=== PATIENT | female | born 1980 | race Caucasian/White ===

== ENCOUNTER 2016-06-07 11:11 | Emergency (ER) | payer OTHER ==
[2016-06-07 11:14] VITALS: BP 184/92; PULSE 112; RESP 20; TEMP 97.7; O2SAT 97
[2016-06-07 13:52] VITALS: BP 166/87; PULSE 104; RESP 17; O2SAT 98
--- NOTE | 2016-06-07 14:49 | PD ---
HPI Chief Complaint: Eye Problems/Injury Time Seen by Provider: 14:43 Travel History International Travel<30 days: No Contact w/Intl Traveler<30days: No Traveled to known affect area: No History of Present Illness HPI 35-year-old female presents the emergency Department with history of retinal hemorrhage, retinal detachment, type 2 diabetes which is not controlled currently. Patient was seen by Dr. Sykes, an gas pump attendant, who performed laser surgery 2 days ago for what appeared to be diabetic retinal hemorrhaging. Patient does not take any medications for her type 2 diabetes. Patient has no history of hypertension. Patient has no known drug allergies. PFSH Past Medical History Diabetes: Yes Patient Takes Glucophage: No Diminished Hearing: No Tetanus Vaccination: Unknown Influenza Vaccination: No ?: Not LMP: 06/06/16 Past Surgical History Section: Yes Eye Surgery: Yes Gynecologic Surgery: Yes Social History Alcohol Use: Yes (OCCASIONALLY) Tobacco Use: No Substance Use: No Allergies-Medications (Allergen,Severity, Reaction): Coded Allergies: No Known Allergies (Unverified , 06/07/16) Reported Meds & Prescriptions Reported Meds & Active Scripts Active No Active Prescriptions or Reported Medications Review of Systems General / Constitutional: No: Fever Eyes: Positive: Blurred Vision, Blind Spots, Visual changes (see history of present illness), No: Diploplia, Photophobia, Drainage, Redness, Foreign Body Sensation, Pain, Tearing HENT: No: Headaches Cardiovascular: No: Chest Pain or Discomfort Respiratory: No: Shortness of Breath Gastrointestinal: No: Abdominal Pain Genitourinary: No: Dysuria Musculoskeletal: No: Pain Skin: No Rash Neurologic: No: Weakness Psychiatric: No: Depression Endocrine: No: Polydipsia Hematologic/Lymphatic: No: Easy Bruising Physical Exam Narrative GENERAL: SKIN: Warm and dry. HEAD: Atraumatic. Normocephalic. EYES: Pupils equal and round. No scleral icterus. Patient has a sub conjunctival hemorrhage on the left. Ophthalmoscopic exam is difficult to assess, with decreased light reflex on the left. ENT: No nasal bleeding or discharge. Mucous membranes pink and moist. Pharynx is clear. NECK: Trachea midline. No JVD. CARDIOVASCULAR: Regular rate and rhythm. RESPIRATORY: No accessory muscle use. Clear to auscultation. Breath sounds equal bilaterally. MUSCULOSKELETAL: Extremities without clubbing, cyanosis, or edema. No obvious deformities. NEUROLOGICAL: Awake and alert. No obvious cranial nerve deficits. Motor grossly within normal limits. Five out of 5 muscle strength in the arms and legs. Normal speech. PSYCHIATRIC: Appropriate mood and affect; insight and judgment normal. Data Data Last Documented VS Vital Signs Date Time Temp Pulse Resp B/P Pulse Ox O2 Delivery O2 Flow Rate FiO2 06/07/16 15:10 97 Room Air 06/07/16 13:52 104 17 166/87 06/07/16 11:14 97.7 Orders Complete Blood Count With Diff (06/07/16 14:49) Comprehensive Metabolic Panel (06/07/16 14:49) Prothrombin Time / Inr (Pt) (06/07/16 14:49) Act Partial Throm Time (Ptt) (06/07/16 14:49) Urinalysis - C+S If Indicated (06/07/16 14:49) Blood Glucose (06/07/16 14:49) MDM Medical Decision Making Medical Screen Exam Complete: Yes Emergency Medical Condition: Yes Differential Diagnosis Diabetic retinal hemorrhage. Retinal tear. For ophthalmologic Surgery. Narrative Course Patient is medically stable at time of exam. Random fingerstick glucose is 257. Call was placed to Dr. Wilson the slope tender on-call, who refers me to Dr. Donaldson. Dr. Donaldson returned my call and the patient was discussed. He stated he could see the patient if she can get their within the next half an hour. Patient was immediately discharged so she could follow with Dr. Donaldson today at his office. Diagnosis Primary Impression: Retinal tear of right eye Additional Impression: Retinal hemorrhage due to secondary diabetes Referrals: Freddie Donaldson MD [facility] Patient Instructions: General Instructions Additional Instructions: Go directly to 's office for evaluation and treatment today. Need to follow with a local primary care physician to get your diabetes under control. He can return the emergency department as needed. Med/Other Pt SpecificInfo: No Meds Exist/No RX given Scripts No Active Prescriptions or Reported Meds Disposition: 01 DISCHARGE HOME Condition: Stable Tigre Lucero Jun 07, 2016 14:49
[2016-06-07 15:10] VITALS: O2SAT 97
[2016-06-07 15:40] LABS: AUTOMATED NEUTROPHIL # 5.7 TH/MM3 (1.8-7.7); BASOPHIL # 0.1 TH/MM3 (0-0.2); BASOPHIL % 0.6 % (0.0-2.0); EOSINOPHIL % 0.3 % (0.0-4.0); HEMATOCRIT 39.7 % (35.0-46.0); HEMO FLAGS DIFF FINAL; LYMPHOCYTE # 2.2 TH/MM3 (1.0-4.8); MEAN CORPUSCULAR HEMOGLOBIN 26.3 PG (27.0-34.0); MEAN CORPUSCULAR HGB CONC 32.9 % (32.0-36.0); MONO % 5.6 % (0.0-8.0); NEUT % 67.5 % (16.0-70.0); PLATELET COUNT 299 TH/MM3 (150-450); RED BLOOD COUNT 4.96 MIL/MM3 (4.00-5.30); RED CELL DISTRIBUTION WIDTH 14.7 % (11.6-17.2); WHITE BLOOD COUNT 8.4 TH/MM3 (4.0-11.0)
[2016-06-07 15:44] LABS: APTT (PATIENT) 27.1 SEC (24.3-30.1); PROTHROMBIN TIME - PATIENT 11.4 SEC (9.8-11.6)
[2016-06-07 15:48] LABS: ALT (GPT) 16 U/L (10-53); ANION GAP 9 MEQ/L (5-15); AST (GOT) 8 U/L (15-37); BLOOD UREA NITROGEN 7 MG/DL (7-18); CHLORIDE 101 MEQ/L (98-107); GLOMERULAR FILTRATION RATE 97 ML/MIN (>89); SODIUM (NA) 137 MEQ/L (136-145)
[2016-06-07 15:51] LABS: ALKALINE PHOSPHATASE 85 U/L (45-117); TOTAL BILIRUBIN ADULT 0.4 MG/DL (0.2-1.0)
== END 2016-06-07 15:45 | disposition home or self-care (01) ==
LOC: NEPD 11:11
DX: H33.301 Unspecified retinal break, right eye (principal); H35.61 Retinal hemorrhage, right eye; E13.319 Other specified diabetes mellitus with unspecified diabetic retinopathy without macular edema
CPT/HCPCS: 80053; 85025; 85610; 85730; 99283

== ENCOUNTER → 2016-09-18 | Day surgery (SDC) | payer MEDICAID ==
[~2016-09-18] MED LIST: DEXAMETHASONE SOD PHOS 4 MG/ML VIAL ONE; DEXTROSE 50% IN WATER 50 ML SYRINGE ONE; EPINEPHrine HCL (1:1000) 1 MG/ML VIAL ONE; LACTATED RINGER'S 1000 ML INJ 1,000 ML ONE; MIDAZOLAM HCL 2 MG/2 ML VIAL ONE; MOXIFLOXACIN 0.5% OPHT SOLN 3 ML BTL ONE; ONDANSETRON HCL 4 MG/2 ML VIAL IV PUSH ONE; PHENYLEPHRINE HCL 10% OPTH SOLN 5 ML BTL ONE; PROPOFOL 200 MG/20 ML AMP IV ONE; SODIUM CHLORIDE 0.9% INJ 10 ML ONE; TETRACAINE 0.5% OPTH SOLN 15 ML BTL ONE; TOBRAMYCIN/DEXAMETHASONE OPTH OINT 3.5 GM TUBE ONE; ceFAZolin INJ 1,000 MG VIAL ONE; prednisoLONE ACETATE 1% OPHT SUSP 5 ML BTL ONE
--- NOTE | 2016-09-22 19:01 | MP ---
cc: KWASI ALONSO MD DATE OF SURGERY 09/22/16 POSTOPERATIVE DIAGNOSIS Severe tractional retinal detachment, proliferative diabetic retinopathy, macular edema, retinal ischemia right eye. PROCEDURE Pars plana vitrectomy with tractional retinal detachment repair, endolaser, 18% SF6 gas instillation right eye. COMPLICATIONS None. BLOOD LOSS Less [address] Candelario general INDICATIONS FOR PROCEDURE This is a delightful patient who presented with severe proliferative diabetic retinopathy and a massive tractional retinal detachment extending throughout the macula. The patient elected for surgical correction in hopes to better stabilize the retina. The patient understands the risk associated with the surgery and guarded prognosis with severity of her condition. PROCEDURE NOTE After informed consent was obtained, the patient was brought to operating room. General anesthesia was established. The right eye was prepped and draped in sterile fashion with Betadine in the conjunctival fornix. A three port pars vitrectomy was established with a self-retaining infusion cannula. The core vitreous was evacuated and large tractional complex was circumscribed. The tractional complexes were segmented and carefully delaminated with curved scissors and grasping forceps and vitrector. The retina had renewed mobility. Subretinal fluid was removed and the retina became reapproximated to underlying PE. Endolaser was applied surrounding areas of dissection in PRP fashion. Air-fluid exchange was carried out and 18% SF6 gas was instilled. Trocar is removed and sclerotomy was closed. Subconjunctival injection of Ancef dexamethasone were given. The eye was patched with Tobramycin ointment. The patient brought to recovery room in stable condition. She will continue to followup with [facility] for her postoperative care. MD WALDO Asif/ /2:24 PM /6:53 PM
== END | disposition home or self-care (01) ==
LOC: ESDC 08:44
PROVIDERS: ATTEND Ophthalmology
DX: H33.41 Traction detachment of retina, right eye (principal); E11.3511 Type 2 diabetes mellitus with proliferative diabetic retinopathy with macular edema, right eye; H35.82 Retinal ischemia
CPT/HCPCS: 00145; 67108; J0171; J0690; J1100; J2250; J2405; J3010; J7120

== ENCOUNTER → 2016-12-04 | Day surgery (SDC) | payer MEDICAID ==
[~2016-12-04] MED LIST changes: +ACETAMINOPHEN 325 MG TAB ONE; +DEXTROSE 5% IN WATER INJ 250 ML IV ONE; -LACTATED RINGER'S 1000 ML INJ 1,000 ML ONE
--- NOTE | 2016-12-12 07:05 | MP ---
cc: FREDDIE ALONSO MD DATE OF SURGERY December 04, 2016 PREOPERATIVE DIAGNOSIS Severe proliferative diabetic retinopathy with severe tractional retinal detachment, macular edema, severe vision loss, left eye. POSTOPERATIVE DIAGNOSIS Severe proliferative diabetic retinopathy with severe tractional retinal detachment, macular edema, severe vision loss, left eye. PROCEDURE Pars plana vitrectomy, tractional retinal detachment repair, air-fluid exchange, endolaser, insertion of 18% SF6 gas left eye. COMPLICATIONS None. BLOOD LOSS Less than 1 cc. ANESTHESIA General. INDICATIONS FOR PROCEDURE This is a delightful patient who presented with severe proliferative diabetic retinopathy in both eyes and scleral the tractional retinal detachments with associated vision loss in both eyes. The patient previously underwent tractional retinal detachment repair on the right eye and now presents for tractional retinal detachment repair on the left eye. The patient understands the risks, benefits and alternatives and wishes to proceed with the proposed surgery. PROCEDURE NOTE After informed consent was obtained, the patient was brought to the operating room. General anesthesia was established. The left eye was prepped and draped in sterile fashion with Betadine in the conjunctival fornix. A three port pars vitrectomy was established with a self-retaining infusion cannula. Core vitreous was evacuated and vitreous traction surrounding the tractional retinal detachment was relieved with vitrectomy. The tractional complexes were carefully circumscribed and then segmented. Each segment was carefully delaminated with curved scissors, intraocular forceps and vitrectomy. The retina had renewed mobility and which allowed operation to the underlying PE. Endolaser was applied to the surrounding areas of dissection and in a PRP fashion. Scleral depressed examination revealed no untreated retinal holes, tears or detachments. Air-fluid exchange was carried out and 18% SF6 gas was instilled. The trocars were removed and sclerotomies closed. Subconjunctival injection of Ancef and dexamethasone were given. The eye was patched with Tobramycin ointment. The patient was brought to the recovery room in stable condition and is to continue followup with [facility] for her postoperative care. Freddie Alonso MD KW/SSB /12:57 AM /6:55 AM [facility]ITAL[facility]
== END | disposition home or self-care (01) ==
LOC: ESDC 10:26
PROVIDERS: ATTEND Ophthalmology
DX: E11.3522 Type 2 diabetes mellitus with proliferative diabetic retinopathy with traction retinal detachment involving the macula, left eye (principal); H35.81 Retinal edema; Z79.4 Long term (current) use of insulin
CPT/HCPCS: 00145; 67108; 82948; J0171; J0690; J1100; J2250; J2405; J3010; J7060

== ENCOUNTER → 2017-03-19 | Day surgery (SDC) | payer MEDICAID ==
[~2017-03-19] MED LIST changes: -ACETAMINOPHEN 325 MG TAB ONE; -DEXTROSE 5% IN WATER INJ 250 ML IV ONE; -PHENYLEPHRINE HCL 10% OPTH SOLN 5 ML BTL ONE; +PHENYLEPHRINE HCL 2.5 % OPTH SOLN 15 ML BTL ONE; +SODIUM CHLOR 0.9% 1000 ML BAG IV ONE; -TETRACAINE 0.5% OPTH SOLN 15 ML BTL ONE; +TETRACAINE 0.5% OPTH SOLN 4 ML BTL ONE
--- NOTE | 2017-03-19 20:15 | MP ---
cc: KWASI ALONSO DATE OF SURGERY 03/19/17 PREOPERATIVE DIAGNOSIS Full-thickness macular hole left eye. POSTOPERATIVE DIAGNOSIS Full-thickness macular hole left eye. PROCEDURE Pars plana vitrectomy, removal of internal limiting membrane, macular hole closure, air-fluid exchange, insertion of 18% SF6 gas left eye. COMPLICATIONS None BLOOD LOSS Less than [address] Contreras general. INDICATIONS FOR PROCEDURE This is a delightful patient with severe proliferative diabetic retinopathy who previously underwent tractional retinal detachment repair, although the tractional retinal detachment was repaired and the retina remained attached a full-thickness macular hole developed. The patient is here for surgical correction understanding the risks, benefits and alternatives. PROCEDURE NOTE After informed form consent was obtained, the patient was brought to operating room where general anesthesia was established. The left eye was prepped and draped in a sterile fashion with Betadine in the conjunctival fornix. A three port pars plana vitrectomy was established with self-retaining infusion cannula. The remaining vitreous traction was relieved with vitrectomy. The ILM was highlighted with ICG and removed with [place] forceps. The retina did have renewed mobility. Scleral depression examination revealed no untreated retinal holes, tears or detachments. The patient previously placed mirza retinal photocoagulation. Air-fluid exchange was carried out and macular hole noted to close. 18% SF6 gas was instilled. Trocar was removed and sclerotomies closed. Subconjunctival injection of Ancef dexamethasone were given. The eye was patched with Tobramycin ointment. The patient was brought to recovery room in stable condition and will continue followup with [facility] for her postoperative care. MD WALDO Asif/ /2:55 PM /8:04 PM
== END | disposition home or self-care (01) ==
LOC: ESDC 08:49
PROVIDERS: ATTEND Ophthalmology
DX: H35.342 Macular cyst, hole, or pseudohole, left eye (principal); E11.3522 Type 2 diabetes mellitus with proliferative diabetic retinopathy with traction retinal detachment involving the macula, left eye
CPT/HCPCS: 00145; 67042; 82948; J0171; J0690; J1100; J2250; J2405; J3010; J7030